=== PATIENT | male | born 1990 | race Caucasian/White ===

== ENCOUNTER 2022-01-02 15:30 | Emergency (ER) | payer OTHER ==
[~2022-01-02] VITALS: Wt 77.1 kg
[2022-01-02] MEDS ORDERED: IBUPROFEN600 MG PO (19:10)
== END 2022-01-02 19:18 | disposition home or self-care (01) ==
LOC: ED 15:30
DX: M25.511 Pain in right shoulder (principal); M25.512 Pain in left shoulder

== ENCOUNTER 2022-04-11 06:47 | Emergency (ER) | payer OTHER ==
[~2022-04-11] VITALS: Ht 175.2 cm; Wt 81.6 kg
[~2022-04-11 06:47] MED LIST: IBUPROFEN600 MG PO
== END 2022-04-11 09:59 | disposition home or self-care (01) ==
LOC: ED 06:47
DX: B34.9 Viral infection, unspecified (principal); Z20.822 Contact with and (suspected) exposure to COVID-19